=== PATIENT | female | born 1950 | race Caucasian/White ===

== ENCOUNTER 2021-08-10 08:45 | Observation (INO) ==
[~2021-08-10 08:45] MED LIST: Buffered Lidocaine 1% SYRIN 1 ml INTRADERM ONE; Lactated Ringers 1000 ml BAG 1,000 ML IV SCH
[2021-08-10] MEDS ORDERED: Lidocaine 2% PF 5 ML VIAL ONE (08:53)
[2021-08-10] MEDS ORDERED: Propofol 10 MG/ML 20 ML BTL ONE (08:53)
[2021-08-10] MEDS ORDERED: Midazolam 2 mg/2 ml VIAL 1 mg/ml 2 ml VIAL (2 mg) ONE (08:56)
[2021-08-10] MEDS ORDERED: Ketamine HCL 50 mg/ml 10 ml VIAL (500 MG) ONE (08:56)
[2021-08-10] MEDS ORDERED: ceFAZolin 2 GM in NS PREMIX 2 GM/100 ML BAG IVPB ONE (09:05)
[2021-08-10] MEDS ORDERED: Bupivacaine 0.5% SDV PF 30ML VIAL ONE (09:14)
[2021-08-10] MEDS ORDERED: Midazolam 5 mg/5 ml VIAL 1 mg/ml 5 ml VIAL (5 mg) ONE (10:09)
[2021-08-10] MEDS ORDERED: Sterile Water for Inj 10 ML ONE (12:11)
[2021-08-10] MEDS ORDERED: Acetaminophen IV 1 GM/100ML 100 ML IV ONE (12:31)
[2021-08-10] MEDS ORDERED: Ondansetron 4 mg VIAL 2 MG/ML 2 ml VIAL ONE (12:32)
[2021-08-10] MEDS ORDERED: Naloxone 0.4 mg VIAL 0.4 mg/ml 1 ml VIAL IV PRN (12:59)
[2021-08-10] MEDS ORDERED: DiMENhydriNATE IV 50 mg/ml 1 ml VIAL IV PUSH PRN (12:59)
[2021-08-10] MEDS ORDERED: HYDROmorphone 1 MG/1 ML SYRINGE IV PRN (12:59)
[2021-08-10] MEDS ORDERED: Labetalol IV 5 MG/ML 20 ml VIAL IV PUSH PRN (13:01)
[2021-08-10] MEDS ORDERED: Ondansetron ODT 4 mg TAB 4 MG TAB PO PRN (14:15)
[2021-08-10] MEDS ORDERED: Magnesium Hydroxide LIQ 30 ML UDC PO PRN (14:15)
[2021-08-10] MEDS ORDERED: Ondansetron 4 mg VIAL 2 MG/ML 2 ml VIAL IV PRN (14:15)
[2021-08-10] MEDS ORDERED: Lactulose 30 ml UDC PO PRN (14:15)
[2021-08-10] MEDS ORDERED: diPHENhydraMINE IV 50 MG/ML 1 ml VIAL (BENADRYL) IV PRN (14:15)
[2021-08-10] MEDS ORDERED: diPHENhydraMINE 25 mg TAB PO PRN (14:15)
[2021-08-10] MEDS ORDERED: Labetalol IV 5 MG/ML 20 ml VIAL ONE (14:22)
[2021-08-10] MEDS: Lactated Ringers 1000 ml BAG 1,000 ML IV SCH (16:26)
[2021-08-10] MEDS ORDERED: hydrALAZINE 20 mg/ml 1 ML Vial IV IV SLOW PU ONE (17:42)
[2021-08-10] MEDS: Magnesium Hydroxide LIQ 30 ML UDC PO SCH (20:58)
[2021-08-10] MEDS: ceFAZolin 1 GM ADVAN 1 GM in NS 0.9% 50 ML 50 ML IVPB SCH (20:59)
[2021-08-11] MEDS: Lactated Ringers 1000 ml BAG 1,000 ML IV SCH (02:49)
[2021-08-11] MEDS: ceFAZolin 1 GM ADVAN 1 GM in NS 0.9% 50 ML 50 ML IVPB SCH ×2 (03:45→11:49)
[2021-08-11 05:44] LABS: Hematocrit 38 % (35-47); Hemoglobin 12.9 g/dL (12.0-16.0); Mean Platelet Volume 7.2 fL (7.4-10.4); Platelet Count 387 10^3/uL (150-450)
[2021-08-11 06:23] LABS: Calcium 9.3 mg/dL (8.6-10.3); Potassium 3.6 mmol/L (3.5-5.0); eGFR CKD-EPI 94.4 (>60)
[2021-08-11] MEDS: Magnesium Hydroxide LIQ 30 ML UDC PO SCH (08:29)
[2021-08-11] MEDS ORDERED: Vitamin THERAPEUTIC TAB PO SCH (09:00)
[2021-08-11 11:45] VITALS: BP 167/94
== END 2021-08-11 13:25 | disposition home or self-care (01) ==
LOC: OR 08:45 → SSU 08:45 → EDSTATUS 09:15
PROVIDERS: ADMIT Orthopaedic Surgery Adult Reconstructive Orthopaedic Surgery; ATTEND Orthopaedic Surgery Adult Reconstructive Orthopaedic Surgery

== ENCOUNTER 2021-08-12 15:02 | Observation (INO) ==
[2021-08-12 15:37] LABS: Hematocrit 36 % (35-47); Hemoglobin 11.9 g/dL (12.0-16.0); Mean Corpuscular HGB Conc 33 g/dL (31-36); Mean Corpuscular Hemoglobin 28 pg (27-31); Mean Corpuscular Volume 86 fL (80-97); Mean Platelet Volume 7.2 fL (7.4-10.4); Platelet Count 368 10^3/uL (150-450); Red Blood Count 4.18 10^6 /uL (3.70-4.87); Red Cell Distribution Width 15 % (10-15); White Blood Count 12.3 10^3/uL (3.5-10.8)
[2021-08-12] MEDS ORDERED: Iohexol 350 (CONTRAST) 500 ML MDV IV ONE (15:51)
[2021-08-12 16:01] LABS: INR 1.23 (0.86-1.15)
[2021-08-12 16:06] LABS: ABS Basophils 0.1 10^3/ul (0-0.2); ABS Lymphocytes 1.5 10^3/ul (1.0-4.8); ABS Monocytes 1.6 10^3/ul (0-0.8); ABS Neutrophils 9.1 10^3/ul (1.5-7.7); Eosinophil % 0.3 %
[2021-08-12 16:18] LABS: Albumin 3.8 g/dL (3.2-5.2); Albumin/Globulin Ratio 1.5 (1-3); Calcium 9.9 mg/dL (8.6-10.3); Globulin 2.5 g/dL (2-4); Potassium 3.3 mmol/L (3.5-5.0); Total Bilirubin 0.8 mg/dL (0.2-1.0); Total Protein 6.3 g/dL (6.4-8.9); eGFR CKD-EPI 98.4 (>60)
[2021-08-12 17:19] LABS: High Sensitivity Troponin 1 Hr 16 pg/mL (<15)
[2021-08-12] MEDS ORDERED: Lactated Ringers 1000 ml BAG 1,000 ML IV ONE (19:03)
[2021-08-12] MEDS ORDERED: Lidocaine 4% TOPICAL 50 ML TOP.SOLN TOPICAL PRN (19:04)
[2021-08-12] MEDS ORDERED: Potassium Chlor 20 meq TAB.ER PO ONE (19:10)
[2021-08-12] MEDS ORDERED: Metoprolol Tartrate 5 mg VIAL 5 ml VIAL (1 mg/ml) IV PRN (19:13)
[2021-08-12] MEDS ORDERED: NS 0.9% 1000 ml BAG 1,000 ML IV SCH (19:15)
[2021-08-12 23:29] LABS: C Reactive Protein 144.81 mg/L (<8.01); Magnesium 1.8 mg/dL (1.9-2.7)
[2021-08-12 23:45] LABS: TSH Ultra Thyroid Stim Horm 1.25 mcIU/mL (0.34-5.60)
[2021-08-12 23:47] LABS: Free T4 1.45 ng/dL (0.61-1.12)
[2021-08-13 06:11] LABS: ABS Basophils 0.1 10^3/ul (0-0.2); ABS Eosinophils 0.1 10^3/ul (0-0.6); ABS Monocytes 1.2 10^3/ul (0-0.8); ABS Neutrophils 6.1 10^3/ul (1.5-7.7); Eosinophil % 1.5 %; Hematocrit 34 % (35-47); Hemoglobin 11.4 g/dL (12.0-16.0); Lymphocyte % 12.2 %; Mean Corpuscular HGB Conc 34 g/dL (31-36); Mean Corpuscular Hemoglobin 29 pg (27-31); Mean Corpuscular Volume 87 fL (80-97); Mean Platelet Volume 7.4 fL (7.4-10.4); Platelet Count 348 10^3/uL (150-450); Red Blood Count 3.92 10^6 /uL (3.70-4.87); Red Cell Distribution Width 15 % (10-15); White Blood Count 8.5 10^3/uL (3.5-10.8)
[2021-08-13 06:39] LABS: Calcium 9.2 mg/dL (8.6-10.3); Magnesium 1.9 mg/dL (1.9-2.7); Phosphorus 2.2 mg/dL (2.5-5.0); Potassium 3.6 mmol/L (3.5-5.0); eGFR CKD-EPI 100.2 (>60)
[2021-08-13] MEDS ORDERED: Potassium Chlor 20 meq TAB.ER PO ONE (07:28)
[2021-08-13] MEDS ORDERED: Cholecalciferol (VIT D3) 1,000 unit TAB PO SCH (09:00)
[2021-08-13 10:00] LABS: TSH Ultra Thyroid Stim Horm 0.76 mcIU/mL (0.34-5.60)
[2021-08-13 10:02] LABS: Free T4 1.29 ng/dL (0.61-1.12)
[2021-08-13] MEDS ORDERED: Potassium & Sodium Phos 250 mg = 1 PACKET PO ONE (14:21)
[2021-08-13] MEDS ORDERED: Iohexol 300 (CONTRAST) 10 ML SDV IV ONE (15:38)
[2021-08-13 21:54] VITALS: BP 123/75
== END 2021-08-13 21:00 | disposition home or self-care (01) ==
LOC: ED 15:02 → EDHOLD 18:57 → INTOOBSV 18:57 → MEDTELE 22:00
PROVIDERS: ADMIT Internal Medicine; ATTEND Internal Medicine